=== PATIENT | male | born 1940 | race Asian ===

== ENCOUNTER 2023-02-08 23:48 | Emergency (ER) | payer MEDICARE ==
[~2023-02-08] VITALS: Ht 162.6 cm; Wt 48.1 kg
[2023-02-08 23:54] VITALS: BP_SYST 103; PULSE 92; RESP 16; TEMP 98.3; O2SAT 98
[2023-02-09] MEDS ORDERED: BISA-140 GT (00:31)
[2023-02-09] MEDS ORDERED: SENN8.6T19 PO (00:31)
[2023-02-09] MEDS ORDERED: IPRA4AER INH (00:31)
[2023-02-09] MEDS ORDERED: CLOP75TA32 GT (00:31)
[2023-02-09] MEDS ORDERED: D-AM10TA2 GT (00:31)
[2023-02-09] MEDS ORDERED: LEVE250T2 PO (00:31)
[2023-02-09] MEDS ORDERED: FINE10TA (00:31)
[2023-02-09] MEDS ORDERED: FINE10TA GT (00:31)
[2023-02-09] MEDS ORDERED: XALEYE OP (00:31)
[2023-02-09] MEDS ORDERED: POLY17PO4 GT (00:31)
[2023-02-09] MEDS ORDERED: PRO40 GT (00:31)
[2023-02-09] MEDS ORDERED: SILO4CAP PO (00:31)
[2023-02-09] MEDS ORDERED: INSU100V10 (00:31)
[2023-02-09] MEDS ORDERED: TYLL650 GT (00:31)
[2023-02-09] MEDS ORDERED: TIMO5DRO18 EACH EYE (00:31)
[2023-02-09] MEDS ORDERED: HEPA500015 SUBCUT (00:31)
[2023-02-09 00:34] LABS: BILIRUBIN,URINE NEGATIVE (NEGATIVE); BLOOD, URINE NEGATIVE (NEGATIVE); COLOR,URINE YELLOW (YELLOW); GLUCOSE,URINE NEGATIVE (NEGATIVE); KETONES,URINE NEGATIVE (NEGATIVE); LEUKOCYTE ESTERASE ,URINE NEGATIVE (NEGATIVE); NITRITE, URINE NEGATIVE (NEGATIVE); PH,URINE 6.5 (5.0-8.0); PROTEIN URINE 1+ (NEGATIVE); UROBILINOGEN,URINE 0.2 (0.2-1.0)
[2023-02-09 00:41] LABS: BASOPHILS % (AUTO) 0.3 % (0.0-2.0); EOSINOPHILS # (AUTO) 0.2 K/uL (0.0-0.4); EOSINOPHILS % (AUTO) 2.9 % (0.0-4.0); HEMATOCRIT 30.6 % (36-54); HEMOGLOBIN 9.9 g/dL (14.0-18.0); LYMPHOCYTES # (AUTO) 1.5 K/uL (1.0-5.5); LYMPHOCYTES % (AUTO) 21.4 % (20.5-51.5); MEAN CORPUSCULAR HEMOGLOBIN 32 pg (27-31); MEAN CORPUSCULAR HGB CONC 33 % (32-36); MEAN CORPUSCULAR VOLUME 99 fL (79.0-98.0); MONOCYTES # (AUTO) 0.9 K/uL (0.0-1.0); MONOCYTES % (AUTO) 13.3 % (1.7-9.3); NEUTROPHILS # (AUTO) 4.4 K/uL (1.8-7.7); NEUTROPHILS % (AUTO) 62.1 % (40.0-70.0); PLATELET COUNT (AUTO) 198 K/uL (130-430); RED BLOOD CELL COUNT(AUTO) 3.08 MIL/uL (4.2-6.2); RED CELL DISTRIBUTION WIDTH 18.5 % (9.0-15.0); WHITE BLOOD COUNT (AUTO) 7.1 K/uL (4.8-10.8)
[2023-02-09 00:43] LABS: ANION GAP 6 (5-15); CALCIUM 8.7 mg/dL (8.4-11.0); CARBON DIOXIDE 29 mmol/L (23-29); CHLORIDE 113 mmol/L (98-107); CREATININE 0.93 mg/dL (0.55-1.30); GLUCOSE 153 mg/dL (74-106); SODIUM SERUM 148 mmol/L (136-145); UREA NITROGEN, BLOOD 78 mg/dL (8-21)
[2023-02-09] MEDS ORDERED: NACL 0.9% 1,000 ML IV ONE ×2 (00:45)
[2023-02-09] MEDS ORDERED: IBUPROFEN 800 MG TABLET GT ONE (00:45)
[2023-02-09 00:56] LABS: PROTHROMBIN TIME 9.9 SECS (9.5-12.5)
[2023-02-09 01:02] LABS: ALANINE AMINOTRANSFERASE 42 U/L (12-78); ALBUMIN 2.2 g/dL (3.4-4.8); ASPARTATE AMINOTRANSFERASE 29 U/L (10-37); TOTAL BILIRUBIN 0.4 mg/dL (0.0-1.0); TOTAL PROTEIN, SERUM 6.5 g/dL (6.4-8.3)
[2023-02-09 01:10] LABS: INFLUENZA TYPE A Negative (NEGATIVE); INFLUENZA TYPE B NEGATIVE (NEGATIVE)
[2023-02-09 01:12] LABS: CLARITY/URINE HAZY (CLEAR)
[2023-02-09 01:13] LABS: BACTERIA,URINE None Seen /HPF (None Seen); RBC,URINE 0-3 /HPF (0-3); WBC,URINE 0-3 /HPF (0-3)
[2023-02-09] MEDS ORDERED: VANCOMYCIN HCL 1,000 MG in NS 250 ML IV ONE (01:30)
[2023-02-09] MEDS ORDERED: NS 500 ML IV ONE (01:30)
[2023-02-09] MEDS ORDERED: PIPERACILLIN/TAZO 3.375 GM in NS 50 ML IV ONE (01:30)
[2023-02-09] MEDS ORDERED: PIPERACILLIN/TAZOBACTAM 3.375 GM/VIAL (ZOSYN) IV ONE (01:37)
[2023-02-09] MEDS ORDERED: ASPIRIN 325 MG TABLET NG ONE (01:45)
[2023-02-09] MEDS: ATORVASTATIN 20 MG TABLET GT SCH (02:30)
[2023-02-09] MEDS ORDERED: HEPARIN 25,000 UNITS/D5W 250ML 250 ML IV ONE (02:30)
[2023-02-09] MEDS ORDERED: *HEPARIN PER PHARMACY XX ONE (02:30)
[2023-02-09] MEDS ORDERED: HEPARIN SODIUM,PORCINE 5,000 UNITS/ML VIAL ONE (02:36)
[2023-02-09 02:45] VITALS: BP_SYST 104; PULSE 84; RESP 19; TEMP 97.7; O2SAT 96
[2023-02-09] MEDS ORDERED: HEPARIN SODIUM,PORCINE 5,000 UNITS/ML VIAL IVP ONE (02:45)
== END 2023-02-09 02:40 | disposition short-term general hospital (02) ==
LOC: SED 23:48
DX: I21.3 ST elevation (STEMI) myocardial infarction of unspecified site (principal); R94.31 Abnormal electrocardiogram [ECG] [EKG]; R50.9 Fever, unspecified; D53.9 Nutritional anemia, unspecified; E11.9 Type 2 diabetes mellitus without complications; I10 Essential (primary) hypertension; Z79.4 Long term (current) use of insulin; Z79.899 Other long term (current) drug therapy; Z20.822 Contact with and (suspected) exposure to COVID-19
CPT/HCPCS: 99291; 96365; 71045; 96361; 96375; 87426; 80053; 81000; 82962; 83880; 85025; 85610; 85730; 87086; 84484; 36415; 83605; 87804 ×2; 87040; 87081; 70450; 76376; J7030; J1644 ×2; J2543